=== PATIENT | male | born 1965 | race Caucasian/White ===

== ENCOUNTER 2017-01-20 00:28 | Inpatient (IN) | payer MEDICAID ==
[~2017-01-20] VITALS: Ht 172.7 cm; Wt 68.2 kg
[2017-01-20 01:31] LABS: HEMATOCRIT 46.7 % (42.0-54.0); HEMOGLOBIN 16.6 g/dL (13.5-17.5); LYMPHOCYTES 16.9 % (15-50); MCH 30.2 pg (26.0-34.0); MCHC 35.5 g/dL (31.0-37.0); MCV 84.9 fL (80.0-100.0); MEAN PLATELET VOLUME 9.8 fL (7.4-10.4); NEUTROPHILS 75.7 % (40-80); PLATELET COUNT 224 10x3/uL (130-400); RDW 13.3 % (11.5-14.5); WBC 15.1 10x3/uL (4.8-10.8)
[2017-01-20 01:37] LABS: ALBUMIN 4.7 g/dL (3.4-5.0); ALKALINE PHOSPHATASE 99 U/L (46-116); ALT (SGPT) 70 U/L (10-68); BILIRUBIN - TOTAL 1.49 mg/dL (0.2-1.3); CALC OSMOLALITY 272 mosm/kg (275-300); CALCIUM 10.1 mg/dL (8.5-10.1); CARBON DIOXIDE 18.9 mmol/L (21.0-32.0); CHLORIDE - SERUM 91 mmol/L (98-107); CREATININE - SERUM 2.4 mg/dL (0.6-1.3); GLUCOSE 114 mg/dL (74-106); POTASSIUM - SERUM 3.6 mmol/L (3.5-5.1); PROTEIN - SERUM 8.9 g/dL (6.4-8.2); SODIUM 129 mmol/L (136-145); UREA NITROGEN 50 mg/dL (7-18); eGFR NON AFRICAN AMERICAN 30 mL/min (90-120)
[2017-01-20 02:02] LABS: CKMB 102.2 U/L (0.0-3.6)
[2017-01-20 02:03] LABS: CREATINE KINASE 4351 UL (21-232)
[2017-01-20 02:11] LABS: MAGNESIUM - SERUM 2.4 mg/dL (1.8-2.4)
[2017-01-20 03:44] LABS: APPEARANCE HAZY (CLEAR); BILIRUBIN NEGATIVE (NEGATIVE); COLOR YELLOW (YELLOW); GLUCOSE NEGATIVE (NEGATIVE); KETONE SMALL mg/dL (NEGATIVE); NITRITE NEGATIVE (NEGATIVE); PROTEIN TRACE mg/dL (NEGATIVE); SPECIFIC GRAVITY 1.025 (1.005-1.020); UROBILINOGEN NORMAL (NORMAL)
[2017-01-20 03:49] LABS: UDS - AMPHET POSITIVE QUAL (NEGATIVE); UDS - BARB NEGATIVE QUAL (NEGATIVE); UDS - BENZO NEGATIVE QUAL (NEGATIVE); UDS - COCAINE NEGATIVE QUAL (NEGATIVE); UDS - METH NEGATIVE QUAL (NEGATIVE); UDS - OPIATE NEGATIVE QUAL (NEGATIVE); UDS - PCP NEGATIVE QUAL (NEGATIVE); UDS - THC POSITIVE QUAL (NEGATIVE)
[2017-01-20 03:57] LABS: AMORPHOUS SEDIMENT >1+ /lpf (NONE SEEN); BACTERIA MANY /hpf (NONE SEEN); CALCIUM OXALATE CRYSTALS RARE /hpf (NONE SEEN); EPITHELIAL CELLS 0-5 /hpf (0-5); GRANULAR CAST 0-5 /lpf (NONE SEEN); LEUKOCYTE ESTERASE TRACE (NEGATIVE); MUCUS >1+ /lpf (NONE SEEN); WAXY CAST OCC /lpf (NONE SEEN)
--- NOTE | 2017-01-20 04:40 | NUR ---
REC FROM ER VIA STRETCHER. HAD SOME DIFFICULTY TRANSFERING HIM TO THE BED, DUE TO SWINGING HIS ARMS AND LEGS AND NOT WANTING TO BE MOVED. WILL NOT LET ME ASSESS HIM, PULLING BLANKET UP TO HIS CHIN, SWINGING HIS ARMS AND KICKING HIS LEGS. IV IS IN RT FA WITH NS AT 125ML/HR STARTED IN ER. WILL NOT RESPOND TO ANY QUESTIONING, PULLING PILLOW OVER HIS HEAD. PLACED BED IN LOW POSITION WITH SR UP X2. PLACED CALL LIGHT BY HIS RIGHT HAND AND EXPLAINING TO HIM TO USE IT IF HE NEEDED ANYTHING.
[2017-01-20] MEDS ORDERED: RITALIN20 MG PO (04:45)
[2017-01-20] MEDS ORDERED: LITHIUM CARBON300 MG PO ×3 (04:46→04:47)
[2017-01-20] MEDS ORDERED: SINEQUAN50 MG PO (04:49)
[2017-01-20] MEDS ORDERED: REVATIO20 MG PO (04:51)
[2017-01-20] MEDS ORDERED: SEROQUEL200 MG PO (04:52)
--- NOTE | 2017-01-20 06:50 | NUR ---
ADMIN ROCEPHIN IV PER ORDER. RESTING QUIETLY WITH EYES CLOSED.
[2017-01-20 07:32] VITALS: BP 120/82; Ht 172.7 cm; Wt 68.2 kg
--- NOTE | 2017-01-20 07:35 | NUR ---
0700-AM ROUNDING DONE WITH PATIENT APPEARING TO BE ALSEEP, RESP ARE EVEN AND NON LABORED. IV OF NS INFUSING TO RIGHT FA AT 125 CC/HR. ON ROOM AIR. WILL CONTINUE TO MONITOR AND ASSESS WHEN AWAKE.
[2017-01-20 07:42] VITALS: BP 124/79
--- NOTE | 2017-01-20 09:43 | NUR ---
AROUSES EASILY, DOES NOT WANT TO BE BOTHERED AT THIS TIME. WILL CONTINUE TO MONITOR.
[2017-01-20 12:05] VITALS: BP 105/42
--- NOTE | 2017-01-20 12:10 | NUR ---
DR TORRES AND MAAME SCHMID IN ROOM TO SEE PATIENT. I WENT IN AFTER THEM TO SEE PATIENT FOR ROUNDING. PATIENT IS CONSTANTLY MOVING IN THE BED, UP AND DOWN, AND SIDE BY SIDE. STATES THAT HE IS UPSET AND THAT HE "BECOMES HARMFUL TO MYSELF AND OTHERS". I ASKED HIM WHY HE IS UPSET AND HE SAID THAT HE CAN NOT GET AHOLD OF HIS MOTHER ON HIS PHONE. HE SAID THAT HE WILL START BANGING HIS HEAD ON THE RAILS, I PADDED THEM WITH BEDSPREAD. I ALSO TOLD DR TORRES AND JUANY THAT HE NEEDS ONE ON ONE CARE. DR TORRES SAID THE SAME THING TO JUANY. JUANY TO CALL ASSISTANT UNIT FORESTER FOR POSSIBLE TRANSFER TO UNIT. 1217-PATIENT IS NOW THROWING THINGS IN THE ROOM (PHONE). SAID THAT THE NOISES ARE MAKING HIM "NUTS". TRIED TO CALM PATIENT DOWN. SAID THAT IF THE NOISES CONTINUE HE WILL RIP THEM OUT OF THE WALL. KATIE MCKEON SPERVISOR IN ROOM TO FILL OUT SUICIDUAL FORM. PHONE IS TAKEN OUT OF THE ROOM ALONG WITH THE LUNCH TRAY.
--- NOTE | 2017-01-20 12:54 | NUR ---
1250-REPORT CALLED TO SHLOMO IN ICU. WILL TRANSFER PATIENT SHORTLY. ONE ON ONE CARE AT PRESENT TIME. PATIENT IS EATING MASHED POTATOES ALONG WITH A ROLL WITH PLASTIC SPOON.
--- NOTE | 2017-01-20 13:12 | NUR ---
MOTHER TO CALL AND INQUIRE ABOUT PATIENT. MOTHER STATES THAT HE STARTED "THRASHING ARUOND AND FALLING" LAST NIGHT BEFORE HE CAME IN. SHE STATES THAT HE DID TELL HER THAT HE DID NOT DO ANY SPEED BUT DID SMOKE SOME POT. I INFORMED HIM THAT HE WAS TRANSFERRED TO THE UNIT.
[2017-01-20 13:15] VITALS: BP 108/64
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
--- NOTE | 2017-01-20 15:20 | NUR ---
1520 DR GAXIOLA IN TO SEE PT AT THIS TIME..
--- NOTE | 2017-01-20 18:40 | NUR ---
1630 DR SANDRA BEEPED FOR ORDERES.. 1700 SOFT DIET OF MASHED POTATOES AND GRAVY SERVED TO PT .. 1730 DR SANDRA RETURNED CALL AND PIV RESTARTED AR 200 CC/HR NS AND HOME MEDS RESTARTED.. PT IS QUIET AT THIS TIME.. 1800 WITHOUT VISITORS...
[2017-01-20 19:30] VITALS: BP 98/62
--- NOTE | 2017-01-20 19:35 | NUR ---
REPORT REC'D AND CARE ASSUMED, REC'D PT RESTING ON LEFT SIDE EYES CLOSED, CM-SR @ 103, RIGHT FOREARM PIV WITH NS @ 200CC/HR, SCABS/SORES NOTED TO BILAT LEGS, CALL LIGHT AND URINAL IN REACH, VISIBLE TO NURSES STATION.
--- NOTE | 2017-01-20 20:05 | NUR ---
PT AWAKE, RESTLESS, AGITATED, STATES " I DON'T LIKE WHERE I AM AT RIGHT NOW AND I WOULD RATHER ", CUSSING ABOUT MONITORING EQUIPMENT, PT STATES " I NEED MY MEDICINE, MY SEROQUEL", INFORMED PT SEROQUEL WAS ORDERED 400MG, STATES "400MG IS TOO MUCH I WILL CLIMB THE BENJAMIN OR JUMP OUT THE WINDOW", 200 MG SEROQUEL PROVIDED ALONG WITH DOXEPIN, PT ROCKING BACK IN FORTH IN BED, TWITCHING NOTED TO ALL FOUR EXT'S, PT REPORTS NEEDING TO VOID, URINAL PROVIDED, CALL LIGHT IN REACH.
--- NOTE | 2017-01-20 20:15 | NUR ---
URINAL EMPTIED OF 200CC YELLOW URINE, PT RESTING IN BED, COMPLAINS ABOUT PILLOW NOT BEING FLAT ENOUGH, 2ND PILOW PROVIDED, IT DID NOT WORK FOR PT, PT REQUESTED TOWEL TO PLACE UNDER HEAD, PROVIDED AT THIS TIME.
--- NOTE | 2017-01-20 21:30 | NUR ---
NO VISITORS IN AT THIS TIME, PT RESTING IN BED, EYES CLOSED, WILL CONT TO MONITOR CLOSELY FOR CHANGES.
--- NOTE | 2017-01-20 23:15 | NUR ---
REASSESSMENT COMPLETED, PT RESTING EYES CLOSED RESP EVEN AND UNLABORED, AWAKENS AFTER CONTINOUS STIMULI, DISORIENTED TO TIME, REORIENTED AT THIS TIME, PT HAD THROWN CELL PHONE AND BED PAD IN FLOOR, CELL PHONE PLACED ON BEDSIDE TABLE, CALM AND COOPERATIVE AT THIS TIME.
[2017-01-20 23:30] VITALS: BP 106/67
--- NOTE | 2017-01-21 01:00 | NUR ---
NO CHANGES IN STATUS AT THIS TIME.
--- NOTE | 2017-01-21 03:00 | NUR ---
PT RESTING ON SIDE IN BED, CUSSING ABOUT PILLOW AND EQUIPMENT, EASILY CALMED, ICE WATER PROVIDED, PT DENIES FURTHER NEEDS.
[2017-01-21 04:17] LABS: BASOPHILS 0.5 % (0-2); EOSINOPHILS 3.6 % (0-7); HEMATOCRIT 37.9 % (42.0-54.0); LYMPHOCYTES 33.2 % (15-50); MCH 30.7 pg (26.0-34.0); MEAN PLATELET VOLUME 9.9 fL (7.4-10.4); MONOCYTES 11.8 % (2-11); NEUTROPHILS 50.9 % (40-80)
[2017-01-21 04:30] LABS: HEMOGLOBIN 12.9 g/dL (13.5-17.5); MCV 90.2 fL (80.0-100.0); PLATELET COUNT 175 10x3/uL (130-400); WBC 6.2 10x3/uL (4.8-10.8)
[2017-01-21 04:47] LABS: ALKALINE PHOSPHATASE 64 U/L (46-116); ALT (SGPT) 58 U/L (10-68); CHLORIDE - SERUM 106 mmol/L (98-107); GLUCOSE 92 mg/dL (74-106); POTASSIUM - SERUM 3.5 mmol/L (3.5-5.1); SODIUM 137 mmol/L (136-145)
[2017-01-21 04:53] LABS: ALBUMIN 2.9 g/dL (3.4-5.0); CALC OSMOLALITY 275 mosm/kg (275-300); CALCIUM 7.5 mg/dL (8.5-10.1); CARBON DIOXIDE 24.4 mmol/L (21.0-32.0); CREATININE - SERUM 0.9 mg/dL (0.6-1.3); PROTEIN - SERUM 5.6 g/dL (6.4-8.2); UREA NITROGEN 18 mg/dL (7-18); eGFR NON AFRICAN AMERICAN > 90 mL/min (90-120)
[2017-01-21 05:00] VITALS: BP 110/75
--- NOTE | 2017-01-21 05:20 | NUR ---
ROUTINE MEDS GIVEN, PT RESTING IN BED EYES CLOSED, RESP EVEN AND UNLABORED, VSS.
--- NOTE | 2017-01-21 06:00 | NUR ---
NO VISITORS IN AT THIS TIME, REMAINS VISIBLE TO NURSES STATION
[2017-01-21 07:00] VITALS: BP 100/52
--- NOTE | 2017-01-21 07:30 | NUR ---
REPORT RECD PT CARE ASSUMED. S1S2 NOTED, SR PER CM. VSS. SEE SHIFT ASSESSMENT FOR FURTHER DETAIL.
--- NOTE | 2017-01-21 09:30 | NUR ---
PT RESTING QUIETLY AT THIS TIME. NO DISTRESS NOTED, VSS.
[2017-01-21 11:00] VITALS: BP 105/65
--- NOTE | 2017-01-21 12:10 | NUR ---
PT PROVIDED WITH LUNCH TRAY. DR SANDRA AT BEDSIDE. NEW ORDERS RECD.
--- NOTE | 2017-01-21 12:36 | NUR ---
CASE MANAGMENT HERE TO TALK WITH PT. PT WILL GO TO OUTPT FACILITY, [place] TO D/C TODAY.
--- NOTE | 2017-01-21 12:46 | NUR ---
PT HAS APPT ON THURSDAY AT 1300 WITH ALBERTO HAYNES AT
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
--- NOTE | 2017-01-21 13:10 | NUR ---
Patient Name: CHRIS REYES Admission Status: ER Accout number: [id number] Admission Date: 01-20-2017 : 1965 Admission Diagnosis: Attending: LUKE Current LOS: 1 Anticipated DC Date: 01-21-2017 Planned Disposition: Home Primary Insurance: MEDICAID [place] Discharge Planning Comments: CM MET WITH PATIENT REGARDING D/C NEEDS AND PLANS. PATIENT LIVES WITH HIS PARENTS AND WILL RETURN THERE AT DISCHARGE (TODAY). PATIENTS FRIEND AND BOSS (DEO SCOTT) WILL BE PICKING HIM UP AT DISCHARGE TODAY. PATIENTS PCP IS PRIYANKA PALOMO AND USES [facility]. CM CALLED [facility] AND HIS APPOINTMENT WHICH HE ALREADY HAD IS THURSDAY AT 1:00PM. PATIENT STATED HIS BOSS COULD POSSIBLY DRIVE HIM THURSDAY TO HIS APPOINTMENT. [facility] [phone] JEANE DSOUZA (MOM) [phone] DEO SCOTT (FRIEND) [phone] [facility] (ALBERTO HAYNES-THERAPIST)- [phone] Storm Chaser: April Rocha Is the patient Alert and Oriented? Yes 0 * How many steps to enter\exit or inside your home? 0 0 * PCP PRIYANKA [facility] 0 * Pharmacy [facility] 0 * Preadmission Environment Home with Family 0 * ADLs Independent 0 * Equipment None 0 * List name and contact numbers for known caregivers / representatives who currently or will assist patient after discharge: JEANE DSOUZA [place] [place] [phone] * Community resources currently utilized Other 0 * Please name any agencies selected above. spring 0 * Additional services required to return to the preadmission environment? Yes 0 * Can the patient safely return to the preadmission environment? Yes 0 * Has this patient been hospitalized within the prior 30 days at any hospital? No 0 Grand Total: 0
--- NOTE | 2017-01-21 13:43 | NUR ---
PT REFUSED SOCKS OR ANY ADDITIONAL COVERING, WELL PERSONAL ESCORT.
== END 2017-01-21 13:44 | disposition home or self-care (01) | DRG 683 ==
LOC: D.ER 00:28 → D.M2 03:52 → EDBD 03:52 → D.ICU 03:52
PROVIDERS: Emergency Medicine; ADMIT Family Medicine
DX: N17.9 Acute kidney failure, unspecified (principal); R45.851 Suicidal ideations; E87.1 Hypo-osmolality and hyponatremia; N39.0 Urinary tract infection, site not specified; M62.82 Rhabdomyolysis; F15.10 Other stimulant abuse, uncomplicated; F12.10 Cannabis abuse, uncomplicated; F60.2 Antisocial personality disorder; E86.0 Dehydration; R74.8 Abnormal levels of other serum enzymes; F41.9 Anxiety disorder, unspecified; Z72.0 Tobacco use; F32.9 Major depressive disorder, single episode, unspecified

== ENCOUNTER 2017-02-03 11:06 | Emergency (ER) | payer MEDICAID ==
[2017-01-20 07:32] VITALS: BMI 22.8
[~2017-02-03 11:06] MED LIST: LITHIUM CARBON300 MG PO; REVATIO20 MG PO; RITALIN20 MG PO; SEROQUEL200 MG PO; SINEQUAN50 MG PO
== END 2017-02-03 11:15 | disposition left against medical advice (07) ==
LOC: D.ER 11:06
DX: Z00.8 Encounter for other general examination (principal)

== ENCOUNTER 2017-02-03 11:56 | Emergency (ER) | payer MEDICAID ==
[2017-01-20 07:32] VITALS: BMI 22.8
[2017-02-03 12:54] LABS: BASOPHILS 0.3 % (0-2); EOSINOPHILS 2.7 % (0-7); HEMATOCRIT 46.6 % (42.0-54.0); HEMOGLOBIN 16.4 g/dL (13.5-17.5); IMMATURE GRANULOCYTES 0.2 % (0-5); LYMPHOCYTES 29.1 % (15-50); MCH 31.4 pg (26.0-34.0); MCHC 35.2 g/dL (31.0-37.0); MCV 89.1 fL (80.0-100.0); MEAN PLATELET VOLUME 9.5 fL (7.4-10.4); MONOCYTES 7.9 % (2-11); NEUTROPHILS 59.8 % (40-80); RBC 5.23 10x6/uL (4.20-6.10); RDW 12.6 % (11.5-14.5); WBC 10.1 10x3/uL (4.8-10.8)
[2017-02-03 13:00] LABS: PLATELET COUNT 230 10x3/uL (130-400)
[2017-02-03 13:03] LABS: ALBUMIN 4.1 g/dL (3.4-5.0); ANION GAP 16.5 mmol/L (8-16); BILIRUBIN - TOTAL 0.9 mg/dL (0.2-1.3); CALCIUM 9.6 mg/dL (8.5-10.1); CARBON DIOXIDE 24.4 mmol/L (21.0-32.0); CREATININE - SERUM 1.2 mg/dL (0.6-1.3); POTASSIUM - SERUM 3.9 mmol/L (3.5-5.1); PROTEIN - SERUM 8.3 g/dL (6.4-8.2)
[2017-02-03 15:07] LABS: APPEARANCE CLEAR (CLEAR); BILIRUBIN NEGATIVE (NEGATIVE); COLOR DK YELLOW (YELLOW); GLUCOSE NEGATIVE (NEGATIVE); KETONE NEGATIVE (NEGATIVE); LEUKOCYTE ESTERASE NEGATIVE (NEGATIVE); NITRITE NEGATIVE (NEGATIVE); PROTEIN NEGATIVE (NEGATIVE); SPECIFIC GRAVITY 1.015 (1.005-1.020); UROBILINOGEN NORMAL (NORMAL)
[2017-02-03 15:28] LABS: UDS - AMPHET POSITIVE QUAL (NEGATIVE); UDS - BARB NEGATIVE QUAL (NEGATIVE); UDS - BENZO NEGATIVE QUAL (NEGATIVE); UDS - COCAINE NEGATIVE QUAL (NEGATIVE); UDS - METH NEGATIVE QUAL (NEGATIVE); UDS - OPIATE NEGATIVE QUAL (NEGATIVE); UDS - PCP NEGATIVE QUAL (NEGATIVE); UDS - THC POSITIVE QUAL (NEGATIVE)
== END 2017-02-04 10:30 | disposition short-term general hospital (02) ==
LOC: D.ER 11:56
PROVIDERS: Emergency Medicine
DX: F23 Brief psychotic disorder (principal); F17.200 Nicotine dependence, unspecified, uncomplicated

== ENCOUNTER 2017-02-23 01:47 | Emergency (ER) | payer MEDICAID ==
[2017-01-20 07:32] VITALS: BMI 22.8
== END 2017-02-23 02:54 | disposition home or self-care (01) ==
LOC: D.ER 01:47
DX: F41.9 Anxiety disorder, unspecified (principal)

== ENCOUNTER 2017-09-23 14:44 | Emergency (ER) | payer MEDICAID ==
[2017-01-20 07:32] VITALS: BMI 22.8
[2017-09-23 15:53] LABS: BASOPHILS 0.4 % (0-2); EOSINOPHILS 5.6 % (0-7); HEMOGLOBIN 15.2 g/dL (13.5-17.5); IMMATURE GRANULOCYTES 0.2 % (0-5); LYMPHOCYTES 22.2 % (15-50); MCH 31.3 pg (26.0-34.0); MCHC 35.3 g/dL (31.0-37.0); MCV 88.7 fL (80.0-100.0); MEAN PLATELET VOLUME 9.6 fL (7.4-10.4); MONOCYTES 9.1 % (2-11); NEUTROPHILS 62.5 % (40-80); PLATELET COUNT 188 10x3/uL (130-400); RBC 4.85 10x6/uL (4.20-6.10); RDW 13.1 % (11.5-14.5)
[2017-09-23 16:11] LABS: ALBUMIN 3.7 g/dL (3.4-5.0); ALKALINE PHOSPHATASE 77 U/L (46-116); ALT (SGPT) 34 U/L (10-68); BILIRUBIN - TOTAL 0.64 mg/dL (0.2-1.3); CALC OSMOLALITY 279 mosm/kg (275-300); CARBON DIOXIDE 24.1 mmol/L (21.0-32.0); CHLORIDE - SERUM 105 mmol/L (98-107); GLUCOSE 119 mg/dL (74-106); POTASSIUM - SERUM 3.7 mmol/L (3.5-5.1); PROTEIN - SERUM 7.1 g/dL (6.4-8.2); SODIUM 140 mmol/L (136-145); UREA NITROGEN 13 mg/dL (7-18); eGFR NON AFRICAN AMERICAN 83 mL/min (90-120)
[2017-09-23 17:17] LABS: UDS - AMPHET POSITIVE QUAL (NEGATIVE); UDS - BARB NEGATIVE QUAL (NEGATIVE); UDS - BENZO NEGATIVE QUAL (NEGATIVE); UDS - COCAINE NEGATIVE QUAL (NEGATIVE); UDS - OPIATE NEGATIVE QUAL (NEGATIVE); UDS - PCP NEGATIVE QUAL (NEGATIVE); UDS - THC POSITIVE QUAL (NEGATIVE)
[2017-09-23 17:28] LABS: APPEARANCE CLEAR (CLEAR); BILIRUBIN NEGATIVE (NEGATIVE); COLOR YELLOW (YELLOW); GLUCOSE NEGATIVE (NEGATIVE); KETONE NEGATIVE (NEGATIVE); NITRITE NEGATIVE (NEGATIVE); PROTEIN NEGATIVE (NEGATIVE); UROBILINOGEN NORMAL (NORMAL)
== END 2017-09-23 18:25 | disposition home or self-care (01) ==
LOC: D.ER 14:44
PROVIDERS: Family Medicine
DX: F15.10 Other stimulant abuse, uncomplicated (principal); F12.90 Cannabis use, unspecified, uncomplicated

== ENCOUNTER 2017-11-30 12:37 | Observation (INO) | payer MEDICAID ==
[2017-11-30 19:50] LABS: BASOPHILS 0.3 % (0-2); EOSINOPHILS 4.9 % (0-7); HEMATOCRIT 46.1 % (42.0-54.0); HEMOGLOBIN 16.1 g/dL (13.5-17.5); IMMATURE GRANULOCYTES 0.3 % (0-5); LYMPHOCYTES 19.6 % (15-50); MCH 31.4 pg (26.0-34.0); MCHC 34.9 g/dL (31.0-37.0); MCV 89.9 fL (80.0-100.0); MEAN PLATELET VOLUME 9.5 fL (7.4-10.4); MONOCYTES 6.5 % (2-11); NEUTROPHILS 68.4 % (40-80); PLATELET COUNT 189 10x3/uL (130-400); RBC 5.13 10x6/uL (4.20-6.10); RDW 12.9 % (11.5-14.5); WBC 12.1 10x3/uL (4.8-10.8)
[2017-11-30 20:10] LABS: ALBUMIN 4.1 g/dL (3.4-5.0); ALKALINE PHOSPHATASE 73 U/L (46-116); ALT (SGPT) 39 U/L (10-68); BILIRUBIN - TOTAL 0.71 mg/dL (0.2-1.3); CALC OSMOLALITY 275 mosm/kg (275-300); CALCIUM 8.9 mg/dL (8.5-10.1); CHLORIDE - SERUM 103 mmol/L (98-107); GLUCOSE 98 mg/dL (74-106); POTASSIUM - SERUM 3.9 mmol/L (3.5-5.1); PROTEIN - SERUM 7.7 g/dL (6.4-8.2); SODIUM 138 mmol/L (136-145); UREA NITROGEN 13 mg/dL (7-18); eGFR NON AFRICAN AMERICAN 83 mL/min (90-120)
[2017-11-30 21:02] VITALS: BMI 22.8
[2017-11-30 21:29] VITALS: BP 108/63
== END 2017-11-30 22:58 | disposition home or self-care (01) ==
LOC: D.ER 12:37 → OBSVTIME 21:16 → D.MS 21:16
PROVIDERS: Physician Assistant
DX: T18.128A Food in esophagus causing other injury, initial encounter (principal); X58.XXXA Exposure to other specified factors, initial encounter; R13.10 Dysphagia, unspecified; K22.10 Ulcer of esophagus without bleeding; K44.9 Diaphragmatic hernia without obstruction or gangrene; K29.70 Gastritis, unspecified, without bleeding; K29.80 Duodenitis without bleeding; F98.8 Other specified behavioral and emotional disorders with onset usually occurring in childhood and adolescence; F31.9 Bipolar disorder, unspecified

== ENCOUNTER 2018-06-11 07:57 | Emergency (ER) | payer MEDICAID ==
[~2018-06-11] VITALS: Ht 172.7 cm; Wt 93.2 kg
[2018-06-11 08:05] VITALS: Ht 172.7 cm; Wt 93.2 kg
[2018-06-11] MEDS ORDERED: CARAFATE1 G PO (08:11)
[2018-06-11] MEDS ORDERED: OMEPRAZOLE20 M1 PO (08:11)
[2018-06-11] MEDS ORDERED: HYDROCHLOROTH12.5 M1 PO (08:11)
[2018-06-11 08:54] LABS: BASOPHILS 0.4 % (0-2); EOSINOPHILS 3.7 % (0-7); HEMATOCRIT 44.6 % (42.0-54.0); HEMOGLOBIN 15.3 g/dL (13.5-17.5); IMMATURE GRANULOCYTES 0.2 % (0-5); LYMPHOCYTES 14.1 % (15-50); MCH 30.8 pg (26.0-34.0); MCHC 34.3 g/dL (31.0-37.0); MCV 89.9 fL (80.0-100.0); MEAN PLATELET VOLUME 9.6 fL (7.4-10.4); MONOCYTES 6.9 % (2-11); NEUTROPHILS 74.7 % (40-80); RBC 4.96 10x6/uL (4.20-6.10); RDW 13.2 % (11.5-14.5); WBC 9.4 10x3/uL (4.8-10.8)
[2018-06-11 08:56] LABS: PLATELET COUNT 228 10x3/uL (130-400)
[2018-06-11 09:01] LABS: ALBUMIN 3.6 g/dL (3.4-5.0); ALKALINE PHOSPHATASE 73 U/L (46-116); ALT (SGPT) 66 U/L (10-68); BILIRUBIN - TOTAL 0.32 mg/dL (0.2-1.3); CALC OSMOLALITY 280 mosm/kg (275-300); CALCIUM 8.5 mg/dL (8.5-10.1); CARBON DIOXIDE 23.9 mmol/L (21.0-32.0); CHLORIDE - SERUM 106 mmol/L (98-107); GLUCOSE 134 mg/dL (74-106); POTASSIUM - SERUM 3.8 mmol/L (3.5-5.1); PROTEIN - SERUM 7.2 g/dL (6.4-8.2); SODIUM 141 mmol/L (136-145); UREA NITROGEN 8 mg/dL (7-18); eGFR NON AFRICAN AMERICAN 83 mL/min (90-120)
[2018-06-11 09:10] LABS: APPEARANCE CLEAR (CLEAR); BILIRUBIN NEGATIVE (NEGATIVE); COLOR YELLOW (YELLOW); GLUCOSE NEGATIVE (NEGATIVE); KETONE NEGATIVE (NEGATIVE); NITRITE NEGATIVE (NEGATIVE); PROTEIN NEGATIVE (NEGATIVE); SPECIFIC GRAVITY 1.015 (1.005-1.020); UDS - AMPHET NEGATIVE QUAL (NEGATIVE); UDS - BARB NEGATIVE QUAL (NEGATIVE); UDS - BENZO NEGATIVE QUAL (NEGATIVE); UDS - COCAINE NEGATIVE QUAL (NEGATIVE); UDS - OPIATE NEGATIVE QUAL (NEGATIVE); UDS - PCP NEGATIVE QUAL (NEGATIVE); UDS - THC POSITIVE QUAL (NEGATIVE); UROBILINOGEN NORMAL (NORMAL)
[2018-06-11 10:10] VITALS: BP 128/76
== END 2018-06-11 10:10 | disposition home or self-care (01) ==
LOC: D.ER 07:57
PROVIDERS: Family Medicine
DX: F32.9 Major depressive disorder, single episode, unspecified (principal); F29 Unspecified psychosis not due to a substance or known physiological condition

== ENCOUNTER 2018-07-21 09:01 | Emergency (ER) | payer MEDICAID ==
[~2018-07-21] VITALS: Ht 172.7 cm; Wt 86.4 kg
[~2018-07-21 09:01] MED LIST changes: +CARAFATE1 G PO; +HYDROCHLOROTH12.5 M1 PO; +OMEPRAZOLE20 M1 PO
[2018-07-21 09:42] VITALS: Ht 172.7 cm; Wt 86.4 kg
[2018-07-21 15:10] VITALS: BP 136/74
== END 2018-07-21 15:10 | disposition home or self-care (01) ==
LOC: D.ER 09:01
DX: R07.89 Other chest pain (principal); K59.00 Constipation, unspecified

== ENCOUNTER 2018-08-19 18:27 | Emergency (ER) | payer MEDICAID ==
[~2018-08-19] VITALS: Ht 172.7 cm; Wt 81.8 kg
[2018-08-19 18:37] VITALS: Ht 172.7 cm; Wt 81.8 kg
[2018-08-19] MEDS ORDERED: DEPAKOTE500 MG PO ×2 (18:40→18:41)
[2018-08-19] MEDS ORDERED: CELEXA20 MG PO (18:40)
[2018-08-19 19:05] LABS: COLOR YELLOW (YELLOW)
[2018-08-19 19:06] LABS: APPEARANCE CLEAR (CLEAR); BILIRUBIN NEGATIVE (NEGATIVE); GLUCOSE NEGATIVE (NEGATIVE); KETONE NEGATIVE (NEGATIVE); NITRITE NEGATIVE (NEGATIVE); PROTEIN NEGATIVE (NEGATIVE); UROBILINOGEN NORMAL (NORMAL)
[2018-08-19 19:10] LABS: UDS - AMPHET NEGATIVE QUAL (NEGATIVE); UDS - BARB NEGATIVE QUAL (NEGATIVE); UDS - BENZO NEGATIVE QUAL (NEGATIVE); UDS - COCAINE NEGATIVE QUAL (NEGATIVE); UDS - OPIATE NEGATIVE QUAL (NEGATIVE); UDS - PCP NEGATIVE QUAL (NEGATIVE); UDS - THC POSITIVE QUAL (NEGATIVE)
[2018-08-19 19:15] LABS: BASOPHILS 0.7 % (0-2); EOSINOPHILS 5.9 % (0-7); HEMATOCRIT 43.9 % (42.0-54.0); HEMOGLOBIN 15.4 g/dL (13.5-17.5); IMMATURE GRANULOCYTES 0.1 % (0-5); LYMPHOCYTES 31.7 % (15-50); MCH 31.2 pg (26.0-34.0); MCHC 35.1 g/dL (31.0-37.0); MEAN PLATELET VOLUME 9.5 fL (7.4-10.4); NEUTROPHILS 54.6 % (40-80); PLATELET COUNT 211 10x3/uL (130-400); RBC 4.93 10x6/uL (4.20-6.10); RDW 13.2 % (11.5-14.5); WBC 7.5 10x3/uL (4.8-10.8)
[2018-08-19 19:46] LABS: ALBUMIN 3.4 g/dL (3.4-5.0); ALKALINE PHOSPHATASE 80 U/L (46-116); ALT (SGPT) 77 U/L (10-68); BILIRUBIN - TOTAL 0.25 mg/dL (0.2-1.3); CALC OSMOLALITY 284 mosm/kg (275-300); CALCIUM 9.1 mg/dL (8.5-10.1); CARBON DIOXIDE 24.8 mmol/L (21.0-32.0); CHLORIDE - SERUM 106 mmol/L (98-107); CREATININE - SERUM 0.9 mg/dL (0.6-1.3); GLUCOSE 99 mg/dL (74-106); POTASSIUM - SERUM 3.8 mmol/L (3.5-5.1); SODIUM 142 mmol/L (136-145); UREA NITROGEN 17 mg/dL (7-18); eGFR NON AFRICAN AMERICAN > 90 mL/min (90-120)
[2018-08-19] MEDS ORDERED: XANAX1 MG PO (21:24)
[2018-08-19 21:54] VITALS: BP 132/78
== END 2018-08-19 21:55 | disposition home or self-care (01) ==
LOC: D.ER 18:27
PROVIDERS: Family Medicine
DX: F41.1 Generalized anxiety disorder (principal); Z59.0 Homelessness; I10 Essential (primary) hypertension

== ENCOUNTER 2018-10-12 14:57 | Emergency (ER) | payer MEDICAID ==
[~2018-10-12] VITALS: Ht 175.3 cm; Wt 81.8 kg
[~2018-10-12 14:57] MED LIST changes: +CELEXA20 MG PO; +DEPAKOTE500 MG PO; +XANAX1 MG PO
[2018-10-12 15:11] VITALS: Ht 175.3 cm; Wt 81.8 kg
[2018-10-12] MEDS ORDERED: ALBUTEROL SULF8.5 GM INH (15:12)
[2018-10-12] MEDS ORDERED: HYDROCHLOROTH12.5 M1 PO (15:13)
[2018-10-12] MEDS ORDERED: CLARITIN 10 MG10 MG PO (15:13)
[2018-10-12 16:25] LABS: APPEARANCE CLEAR (CLEAR); BILIRUBIN NEGATIVE (NEGATIVE); COLOR YELLOW (YELLOW); GLUCOSE NEGATIVE (NEGATIVE); KETONE NEGATIVE (NEGATIVE); NITRITE NEGATIVE (NEGATIVE); PROTEIN NEGATIVE (NEGATIVE); SPECIFIC GRAVITY 1.025 (1.005-1.020); UROBILINOGEN NORMAL (NORMAL)
[2018-10-12 16:30] LABS: BASOPHILS 0.8 % (0-2); EOSINOPHILS 4.5 % (0-7); HEMATOCRIT 42.2 % (42.0-54.0); IMMATURE GRANULOCYTES 0.2 % (0-5); LYMPHOCYTES 27.6 % (15-50); MCH 30.5 pg (26.0-34.0); MCHC 35.5 g/dL (31.0-37.0); MCV 85.9 fL (80.0-100.0); MEAN PLATELET VOLUME 9.6 fL (7.4-10.4); MONOCYTES 8.4 % (2-11); NEUTROPHILS 58.5 % (40-80); PLATELET COUNT 204 10x3/uL (130-400); RBC 4.91 10x6/uL (4.20-6.10); WBC 10.3 10x3/uL (4.8-10.8)
[2018-10-12 16:37] LABS: UDS - AMPHET POSITIVE QUAL (NEGATIVE); UDS - BARB NEGATIVE QUAL (NEGATIVE); UDS - BENZO NEGATIVE QUAL (NEGATIVE); UDS - COCAINE NEGATIVE QUAL (NEGATIVE); UDS - OPIATE NEGATIVE QUAL (NEGATIVE); UDS - PCP NEGATIVE QUAL (NEGATIVE); UDS - THC POSITIVE QUAL (NEGATIVE)
[2018-10-12 16:44] LABS: ALBUMIN 3.7 g/dL (3.4-5.0); ANION GAP 10.7 mmol/L (8-16); BILIRUBIN - TOTAL 0.58 mg/dL (0.2-1.3); CALCIUM 8.6 mg/dL (8.5-10.1); CARBON DIOXIDE 27.8 mmol/L (21.0-32.0); CREATININE - SERUM 1.1 mg/dL (0.6-1.3); POTASSIUM - SERUM 3.5 mmol/L (3.5-5.1); PROTEIN - SERUM 7.3 g/dL (6.4-8.2)
[2018-10-13 02:55] VITALS: BP 138/61
== END 2018-10-13 02:55 ==
LOC: D.ER 14:57
PROVIDERS: Emergency Medicine
DX: R45.851 Suicidal ideations (principal); F31.9 Bipolar disorder, unspecified; F20.9 Schizophrenia, unspecified

== ENCOUNTER 2018-10-24 07:09 | Emergency (ER) | payer MEDICAID ==
[~2018-10-24] VITALS: Ht 175.3 cm; Wt 90.9 kg
[~2018-10-24 07:09] MED LIST changes: +ALBUTEROL SULF8.5 GM INH; +CLARITIN 10 MG10 MG PO
[2018-10-24 07:11] VITALS: Ht 175.3 cm; Wt 90.9 kg
[2018-10-24 07:40] LABS: BASOPHILS 0.7 % (0-2); EOSINOPHILS 2.9 % (0-7); HEMATOCRIT 42.2 % (42.0-54.0); HEMOGLOBIN 14.9 g/dL (13.5-17.5); IMMATURE GRANULOCYTES 0.2 % (0-5); LYMPHOCYTES 23.1 % (15-50); MCH 30.6 pg (26.0-34.0); MCHC 35.3 g/dL (31.0-37.0); MCV 86.7 fL (80.0-100.0); MEAN PLATELET VOLUME 9.2 fL (7.4-10.4); MONOCYTES 12.9 % (2-11); NEUTROPHILS 60.2 % (40-80); PLATELET COUNT 185 10x3/uL (130-400); RBC 4.87 10x6/uL (4.20-6.10); RDW 12.7 % (11.5-14.5); WBC 8.4 10x3/uL (4.8-10.8)
[2018-10-24 07:59] LABS: ALBUMIN 3.8 g/dL (3.4-5.0); ALKALINE PHOSPHATASE 85 U/L (46-116); ALT (SGPT) 36 U/L (10-68); CALC OSMOLALITY 270 mosm/kg (275-300); CALCIUM 8.4 mg/dL (8.5-10.1); CARBON DIOXIDE 22.7 mmol/L (21.0-32.0); CHLORIDE - SERUM 103 mmol/L (98-107); CREATININE - SERUM 0.9 mg/dL (0.6-1.3); GLUCOSE 135 mg/dL (74-106); POTASSIUM - SERUM 3.5 mmol/L (3.5-5.1); SODIUM 135 mmol/L (136-145); UREA NITROGEN 11 mg/dL (7-18); eGFR NON AFRICAN AMERICAN > 90 mL/min (90-120)
[2018-10-24 08:20] LABS: CREATINE KINASE 731 UL (21-232); MAGNESIUM - SERUM 1.9 mg/dL (1.8-2.4)
[2018-10-24 08:49] LABS: CKMB 10.3 U/L (0.0-3.6)
[2018-10-24 09:32] LABS: APPEARANCE CLEAR (CLEAR); BILIRUBIN NEGATIVE (NEGATIVE); COLOR STRAW (YELLOW); GLUCOSE NEGATIVE (NEGATIVE); KETONE NEGATIVE (NEGATIVE); NITRITE NEGATIVE (NEGATIVE); PROTEIN NEGATIVE (NEGATIVE); UROBILINOGEN NORMAL (NORMAL)
[2018-10-24 09:44] LABS: UDS - AMPHET POSITIVE QUAL (NEGATIVE); UDS - BARB NEGATIVE QUAL (NEGATIVE); UDS - BENZO NEGATIVE QUAL (NEGATIVE); UDS - COCAINE POSITIVE QUAL (NEGATIVE); UDS - OPIATE NEGATIVE QUAL (NEGATIVE); UDS - PCP NEGATIVE QUAL (NEGATIVE); UDS - THC POSITIVE QUAL (NEGATIVE)
[2018-10-24 10:57] VITALS: BP 146/79
== END 2018-10-24 10:59 | disposition home or self-care (01) ==
LOC: D.ER 07:09
PROVIDERS: Family Medicine
DX: F14.10 Cocaine abuse, uncomplicated (principal); F29 Unspecified psychosis not due to a substance or known physiological condition

== ENCOUNTER 2018-10-24 21:33 | Emergency (ER) | payer MEDICAID ==
[~2018-10-24] VITALS: Ht 175.3 cm; Wt 93.0 kg
[2018-10-24 22:04] VITALS: BP 120/69; Ht 175.3 cm; Wt 93.0 kg
[2018-10-24 22:32] LABS: APPEARANCE CLEAR (CLEAR); COLOR YELLOW (YELLOW); GLUCOSE NEGATIVE (NEGATIVE); NITRITE NEGATIVE (NEGATIVE); PROTEIN NEGATIVE (NEGATIVE)
[2018-10-24 22:33] LABS: BILIRUBIN NEGATIVE (NEGATIVE); KETONE NEGATIVE (NEGATIVE); UROBILINOGEN NORMAL (NORMAL)
[2018-10-24 22:33] LABS: BASOPHILS 0.9 % (0-2); EOSINOPHILS 2.3 % (0-7); HEMATOCRIT 41.3 % (42.0-54.0); HEMOGLOBIN 14.4 g/dL (13.5-17.5); IMMATURE GRANULOCYTES 0.1 % (0-5); LYMPHOCYTES 27.7 % (15-50); MCH 30.3 pg (26.0-34.0); MCHC 34.9 g/dL (31.0-37.0); MCV 86.8 fL (80.0-100.0); MEAN PLATELET VOLUME 9.2 fL (7.4-10.4); MONOCYTES 11.4 % (2-11); NEUTROPHILS 57.6 % (40-80); PLATELET COUNT 190 10x3/uL (130-400); RBC 4.76 10x6/uL (4.20-6.10); RDW 12.7 % (11.5-14.5); WBC 11.5 10x3/uL (4.8-10.8)
[2018-10-24 22:39] LABS: UDS - AMPHET POSITIVE QUAL (NEGATIVE); UDS - BARB NEGATIVE QUAL (NEGATIVE); UDS - BENZO NEGATIVE QUAL (NEGATIVE); UDS - COCAINE POSITIVE QUAL (NEGATIVE); UDS - OPIATE NEGATIVE QUAL (NEGATIVE); UDS - PCP NEGATIVE QUAL (NEGATIVE); UDS - THC POSITIVE QUAL (NEGATIVE)
[2018-10-24 22:48] LABS: ALBUMIN 3.8 g/dL (3.4-5.0); ANION GAP 15.6 mmol/L (8-16); BILIRUBIN - TOTAL 0.42 mg/dL (0.2-1.3); CALCIUM 8.7 mg/dL (8.5-10.1); CARBON DIOXIDE 24.3 mmol/L (21.0-32.0); CREATININE - SERUM 1.1 mg/dL (0.6-1.3); POTASSIUM - SERUM 3.9 mmol/L (3.5-5.1); PROTEIN - SERUM 7.2 g/dL (6.4-8.2)
[2018-10-24 22:56] LABS: THYROID STIMULATING HORMONE 1.04 uIU/mL (0.36-3.74)
== END 2018-10-25 09:50 | disposition home or self-care (01) ==
LOC: D.ER 21:33
PROVIDERS: Family Medicine
DX: F14.10 Cocaine abuse, uncomplicated (principal); F15.10 Other stimulant abuse, uncomplicated; Z86.59 Personal history of other mental and behavioral disorders; Z59.0 Homelessness; J02.9 Acute pharyngitis, unspecified

== ENCOUNTER 2018-10-28 16:43 | Emergency (ER) | payer MEDICAID ==
[~2018-10-28] VITALS: Ht 175.3 cm; Wt 90.9 kg
[2018-10-28 17:26] VITALS: BP 121/91; Ht 175.3 cm; Wt 90.9 kg
[2018-10-28 17:50] LABS: BASOPHILS 0.5 % (0-2); EOSINOPHILS 2.6 % (0-7); HEMATOCRIT 40.8 % (42.0-54.0); HEMOGLOBIN 13.9 g/dL (13.5-17.5); IMMATURE GRANULOCYTES 0.3 % (0-5); LYMPHOCYTES 37.2 % (15-50); MCH 30.3 pg (26.0-34.0); MCHC 34.1 g/dL (31.0-37.0); MCV 89.1 fL (80.0-100.0); MEAN PLATELET VOLUME 9.2 fL (7.4-10.4); MONOCYTES 7.3 % (2-11); NEUTROPHILS 52.1 % (40-80); PLATELET COUNT 203 10x3/uL (130-400); RBC 4.58 10x6/uL (4.20-6.10); WBC 13.3 10x3/uL (4.8-10.8)
[2018-10-28 18:05] LABS: ALBUMIN 3.6 g/dL (3.4-5.0); ANION GAP 15.9 mmol/L (8-16); BILIRUBIN - TOTAL 0.16 mg/dL (0.2-1.3); CALCIUM 8.5 mg/dL (8.5-10.1); CARBON DIOXIDE 23.5 mmol/L (21.0-32.0); CREATININE - SERUM 1.1 mg/dL (0.6-1.3); MAGNESIUM - SERUM 1.9 mg/dL (1.8-2.4); POTASSIUM - SERUM 3.4 mmol/L (3.5-5.1); PROTEIN - SERUM 7.3 g/dL (6.4-8.2)
[2018-10-28 18:09] LABS: UDS - AMPHET NEGATIVE QUAL (NEGATIVE); UDS - BARB NEGATIVE QUAL (NEGATIVE); UDS - BENZO NEGATIVE QUAL (NEGATIVE); UDS - COCAINE NEGATIVE QUAL (NEGATIVE); UDS - OPIATE NEGATIVE QUAL (NEGATIVE); UDS - PCP NEGATIVE QUAL (NEGATIVE); UDS - THC POSITIVE QUAL (NEGATIVE)
[2018-10-28 18:11] LABS: APPEARANCE CLEAR (CLEAR); BILIRUBIN NEGATIVE (NEGATIVE); COLOR STRAW (YELLOW); GLUCOSE NEGATIVE (NEGATIVE); KETONE NEGATIVE (NEGATIVE); NITRITE NEGATIVE (NEGATIVE); PROTEIN NEGATIVE (NEGATIVE); UROBILINOGEN NORMAL (NORMAL)
== END 2018-10-29 01:50 | disposition home or self-care (01) ==
LOC: D.ER 16:43
PROVIDERS: Family Medicine
DX: F20.9 Schizophrenia, unspecified (principal); F41.9 Anxiety disorder, unspecified